=== PATIENT | male | born 1995 | race Caucasian/White ===

== ENCOUNTER 2017-01-24 21:31 | Emergency (ER) | payer BC ==
[~2017-01-24] VITALS: Ht 180.3 cm; Wt 117.2 kg
[2017-01-24 21:34] VITALS: TEMP 36.8; Ht 180.3 cm; Wt 117.2 kg
[2017-01-24] MEDS ORDERED: RABIES IMMUNE GLOBULIN (HUMAN) 150 INTER.UNIT/ML 2 ML VIAL IM. ONE (22:45)
[2017-01-24] MEDS ORDERED: RABIES VACCINE (IMOVAX) HUMAN DIPL CELL 2.5 INTER.UNIT/ML SYR IM. ONE (22:45)
[2017-01-24 23:40] VITALS: BP 130/72; PULSE 87; O2SAT 97
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
== END 2017-01-24 23:33 | disposition home or self-care (01) ==
LOC: C.EDB 21:33 → C.EDD 23:33
DX: Z23 Encounter for immunization (principal); Z20.3 Contact with and (suspected) exposure to rabies